=== PATIENT | male | born 1985 | race Caucasian/White ===

== ENCOUNTER 2021-10-30 13:56 | Emergency (ER) | payer OTHER ==
[2021-10-30 14:12] VITALS: BP 141/99; PULSE 83; TEMP 98; BMI 27.4
[2021-10-30 15:59] LABS: BASO % 0.4 % (0-2.0); EOS % 1.9 % (0-4.5); HEMATOCRIT 42.1 % (35.4-49); HEMOGLOBIN 14.5 GM/dL (11.7-16.9); LYMPH % 20.9 % (8-40); MCHC 34.4 g/dl (32.0-35.9); MEAN CELL VOLUME 84.5 fl (80-96); MEAN PLT VOLUME 6.4 fl (7.5-11.1); MONO % 6.5 % (3.8-10.2); NEUT % 70.3 % (42.8-82.8); PLATELET COUNT 423 10^3/uL (134-434); RBC 4.98 M/mm3 (4.00-5.60); RDW 12.8 % (11.9-15.9); WHITE BLOOD COUNT 8.8 K/mm3 (4.0-10.0)
[2021-10-30] MEDS ORDERED: ASPIRIN 81 MG CHEWABLE TABLETS PO ONE (16:00)
[2021-10-30 16:16] LABS: CHLORIDE 103 mmol/L (98-107); SODIUM 140 mmol/L (136-145)
[2021-10-30 16:18] LABS: ALBUMIN 3.7 g/dl (3.4-5.0); CALCIUM 9.4 mg/dL (8.5-10.1)
[2021-10-30 16:19] LABS: ANION GAP 10 MMOL/L (8-16); BLOOD UREA NITROGEN 10.4 mg/dL (7-18); CO2 27 mmol/L (21-32); GLUCOSE,RANDOM 94 mg/dL (74-106)
[2021-10-30 16:21] LABS: SGPT/ALT 123 U/L (13-61)
[2021-10-30 16:22] LABS: CREATININE 0.8 mg/dL (0.55-1.3); SGOT/AST 51 U/L (15-37)
[2021-10-30 16:23] LABS: BILIRUBIN,TOTAL 0.3 mg/dL (0.2-1)
[2021-10-30 16:24] LABS: ALK PHOS 113 U/L (45-117)
[2021-10-30] MEDS ORDERED: ASPIRIN 81 MG CHEWABLE TABLETS ONE (17:01)
== END 2021-10-30 19:33 | disposition home or self-care (01) ==
LOC: JER 13:56
DX: U07.1 COVID-19 (principal); R00.2 Palpitations
CPT/HCPCS: 36415; 71046-TC-FY; 71275-TC; 80053; 82550; 82553; 84443; 84484; 85025; 85379; 93005; 93010; 93308; 99285-25; Q9967